=== PATIENT | male | born 1960 | race Caucasian/White ===

== ENCOUNTER 2020-11-10 04:56 | Emergency (ER) | payer MEDICAID ==
[~2020-11-10] VITALS: Ht 170.2 cm; Wt 78.5 kg
[2020-11-10 05:15] VITALS: BP 110/64
[2020-11-10] MEDS ORDERED: LORATADINE 10 MG TABLET PO ONE (06:15)
== END 2020-11-10 07:03 | disposition home or self-care (01) ==
LOC: EMS 05:01
DX: J30.2 Other seasonal allergic rhinitis (principal); F32.9 Major depressive disorder, single episode, unspecified; F17.200 Nicotine dependence, unspecified, uncomplicated; Z59.0 Homelessness; Z88.0 Allergy status to penicillin
CPT/HCPCS: 99283